=== PATIENT | male | born 2000 | race Caucasian/White ===

== ENCOUNTER 2018-07-19 23:46 | Emergency (ER) | payer OTHER ==
[~2018-07-19] VITALS: Ht 188 cm; Wt 104.5 kg
[2018-07-19] MEDS ORDERED: PEPT262T2 PO (23:49)
[2018-07-20] MEDS ORDERED: METOCLOPRAMIDE INJ 10MG/2ML VIAL (J2765) IV ONE (00:15)
[2018-07-20] MEDS ORDERED: NS 1,000 ML IV ONE ×2 (00:15→01:15)
[2018-07-20 00:27] LABS: BASO % 0.3 % (0.0-1.0); EOS % 0.2 % (0.0-3.0); HEMATOCRIT 50.5 % (42.0-52.0); HEMOGLOBIN 17.7 g/dl (13.5-17.5); LYMPH # 0.3 10^3/uL (1.5-6.5); LYMPH % 2.5 % (24.0-44.0); MEAN CORPUSCULAR HEMOGLOBIN 31.2 pg (27.0-33.0); MEAN CORPUSCULAR VOLUME 89.1 fl (80.0-96.0); MONO # 0.5 10^3/uL (0.0-0.8); MONO % 3.9 % (0.0-5.0); NEUTROPHILS % 92.1 % (36.0-66.0); PLATELET COUNT, AUTOMATED 191 10^3/uL (150-450); RED BLOOD COUNT 5.67 10^6/uL (4.30-6.10); WHITE BLOOD COUNT 11.9 10^3/uL (4.0-10.0)
[2018-07-20 00:50] LABS: ALT/SGPT 36 U/L (12-78); BILIRUBIN,DIRECT 0.3 MG/DL (0.0-0.2); BLOOD UREA NITROGEN 19 MG/DL (7-18); CALCIUM LEVEL 9.5 MG/DL (8.5-10.1); CARBON DIOXIDE LEVEL 25 MEQ/L (21-32); CHLORIDE LEVEL 103 MEQ/L (98-107); CREATININE FOR GFR 1.31 MG/DL (0.70-1.30); GLUCOSE, FASTING 116 MG/DL (70-100); INFLUENZA A AMPLIFICATION NEGATIVE (NEGATIVE); INFLUENZA B AMPLIFICATION NEGATIVE (NEGATIVE); LIPASE 64 U/L (73-393); POTASSIUM SERUM 4.9 MEQ/L (3.5-5.1); SODIUM LEVEL 137 MEQ/L (136-145); TOTAL PROTEIN 8.3 GM/DL (6.4-8.2)
[2018-07-20] MEDS ORDERED: ONDANSETRON 4MG/2ML VIAL (J2405) IV ONE (01:15)
[2018-07-20] MEDS ORDERED: ONDA4TAB6 PO (01:21)
[2018-07-20] MEDS ORDERED: KETOROLAC 30 MG/ML VIAL (J1885) IV ONE (01:30)
[2018-07-20] MEDS ORDERED: DICYCLOMINE 10 MG CAP PO ONE (01:30)
[2018-07-20 02:37] VITALS: BP 127/60
--- NOTE | 2018-07-20 08:26 | REP ---
Clinical: Acute abdominal pain. Technique: Upright view of the chest with supine and upright views of the abdomen and pelvis. Findings: Frontal upright view of the chest demonstrates no acute cardiopulmonary process or free air below the diaphragm to suspect pneumoperitoneum. Supine and upright views of the abdomen and pelvis demonstrate nonspecific bowel gas pattern without obstruction or perforation. No organomegaly. No abnormal calcifications. Skeletal structures normal for age. Impression: Nonspecific bowel gas pattern. Electronically Signed by Naveen Rahman MD 07/20/2018 08:17 A
== END 2018-07-20 02:41 | disposition home or self-care (01) ==
LOC: M ED 23:46
DX: R10.84 Generalized abdominal pain (principal); R11.2 Nausea with vomiting, unspecified; R19.7 Diarrhea, unspecified; Z79.899 Other long term (current) drug therapy
CPT/HCPCS: 74021; 80048; 80076; 83690; 85025; 87502; 96374; 96375; 99284; J1885; J2405; J2765

== ENCOUNTER 2020-01-28 18:08 | Emergency (ER) | payer OTHER ==
[~2020-01-28] VITALS: Ht 188 cm; Wt 106.8 kg
[2020-01-28 18:08] VITALS: BP 145/76
[~2020-01-28 18:08] MED LIST: ONDA4TAB6 PO; PEPT262T2 PO
--- NOTE | 2020-01-28 18:46 | REPVR ---
PROCEDURE INFORMATION: Exam: XR Left Ankle Exam date and time: 01/28/2020 6:14 PM Age: 19 years old Clinical indication: Pain; Ankle; Left; Additional info: Trauma TECHNIQUE: Imaging protocol: XR Left ankle. Views: 3 or more views. COMPARISON: No relevant prior studies available. FINDINGS: Bones/joints: Normal bony alignment. No acute fracture. No asymmetric ankle mortise widening. Fifth metatarsal base is intact. No osteochondral lesion of the talar dome. No evidence of tarsal coalition. No concerning bone lesion. Joint spaces are well maintained. Soft tissues: Anterolateral ankle soft tissue swelling is present. IMPRESSION: Mild anterolateral ankle soft tissue swelling. No evidence of acute fracture. Electronically signed by: Augustus Hernandez On 01/28/2020 18:46:11 PM
[2020-01-28] MEDS ORDERED: ACETAMINOPHEN 500 MG TAB PO ONE (19:15)
[2020-01-28] MEDS ORDERED: KETOROLAC 60MG 2ML VIAL IM ONE (19:15)
== END 2020-01-28 19:42 | disposition home or self-care (01) ==
LOC: M ED 18:08
DX: S93.402A Sprain of unspecified ligament of left ankle, initial encounter (principal); X50.0XXA Overexertion from strenuous movement or load, initial encounter; Y92.018 Other place in single-family (private) house as the place of occurrence of the external cause; K31.1 Adult hypertrophic pyloric stenosis
CPT/HCPCS: 73610; 96372; 99284; J1885